=== PATIENT | female | born 1975 | race Caucasian/White ===

== ENCOUNTER 2018-11-19 10:43 | Emergency (ER) | payer BC | END 2018-11-19 12:20 | disposition home or self-care (01) | LOC: FTE 10:43 | DX: S93.401A Sprain of unspecified ligament of right ankle, initial encounter (principal); X58.XXXA Exposure to other specified factors, initial encounter; Y92.9 Unspecified place or not applicable | CPT/HCPCS: 73590; 73610-RT; 73630; 73630-LT; 81025; 99283-25 ==